=== PATIENT | female | born 1935 | race Caucasian/White ===

== ENCOUNTER 2018-07-01 09:10 | Emergency (ER) | payer MEDICARE, BC ==
[~2018-07-01] VITALS: Ht 152.4 cm; Wt 86.2 kg
[~2018-07-01 09:10] MED LIST: ASPI-630 PO; CEFD300C PO; GABA-585 PO; LEXAPRO10 MG PO; LISI10TA2 PO; OMEP40CA5 PO; POTA10TA12 PO; RAMI2.5C2 PO; SOLI10TA2 PO; TOLT2CAP PO; dilTIAZem HCL PO
[2018-07-01 09:30] VITALS: BP 114/73
[2018-07-01 09:48] LABS: BASO % 1 % (0-3); EOS # 0.1 x10^3/uL (0.0-0.7); EOS % 2 % (0-3); HEMATOCRIT 34.6 % (36.0-47.0); HEMOGLOBIN 11.8 g/dL (12.0-15.5); LYMPH % 12 % (24-48); MEAN CORPUSCULAR HEMOGLOBIN 30 pg (25-35); MEAN CORPUSCULAR HGB CONC 34 g/dL (31-37); MEAN CORPUSCULAR VOLUME 87 fL (79-100); MONO # 0.6 x10^3/uL (0.0-1.1); MONO % 7 % (0-9); NEUT # 6.6 x10^3uL (1.8-7.7); NEUT % 79 % (31-73); PLATELET COUNT 247 x10^3/uL (140-400); RED BLOOD COUNT 3.96 x10^6/uL (3.50-5.40); RED CELL DISTRIBUTION WIDTH 16.3 % (11.5-14.5); WHITE BLOOD COUNT 8.4 x10^3/uL (4.0-11.0)
[2018-07-01 10:09] LABS: CALCIUM 8.7 mg/dL (8.5-10.1); GFR 53.1; POTASSIUM 3.9 mmol/L (3.5-5.1)
[2018-07-01 10:15] LABS: ALBUMIN 2.4 g/dL (3.4-5.0); ALBUMIN/GLOBULIN RATIO 0.6 (1.0-1.7); TOTAL BILIRUBIN 0.9 mg/dL (0.2-1.0); TOTAL PROTEIN 6.6 g/dL (6.4-8.2)
[2018-07-01 10:26] LABS: PROTHROMBIN TIME PATIENT 13.4 SEC (11.7-14.0)
--- NOTE | 2018-07-01 11:28 | PHYS DOC ---
Past Medical History Past Medical History: A-Fib, Anxiety, Depression, GERD, Hypertension, Other Additional Past Medical Histor: OVARIAN CANCER, CHEMO,URINARY RETENTION, ALTERED MENTAL STATUS Past Surgical History: Cholecystectomy, Hysterectomy, Other Additional Past Surgical Histo: HERNIA, CHEMO FOR OVARIAN CANCER Alcohol Use: None Drug Use: None Adult General Chief Complaint Chief Complaint: RECTAL BLEED HPI HPI Patient is a 83 year old female skilled nursing patient who presents with single episode of bright red rectal bleeding with bowel movement prior to ED arrival. Patient denies abdominal pain. No lightheadedness, dizziness reported. Patient is on DVT prophylaxis doses of lovenox. [] Review of Systems Review of Systems Review symptoms as per history of present illness. All other systems were reviewed and found to be within normal limits, except as documented in this note. Current Medications Current Medications Current Medications Medications (Trade) Dose Ordered Sig/Constantin Start Time Stop Time Status Last Admin Dose Admin Fentanyl Citrate (Fentanyl 2ml Vial) 25 mcg 1X ONCE 07/01/18 11:45 07/01/18 11:46 DC 07/01/18 12:22 25 MCG Info (CONTRAST GIVEN -- Rx MONITORING) 1 each PRN DAILY PRN 07/01/18 12:30 07/03/18 12:29 Iohexol (Omnipaque 300 Mg/ml) 60 ml 1X ONCE 07/01/18 12:15 07/01/18 12:17 DC 07/01/18 12:15 60 ML Ondansetron HCl (Zofran) 4 mg 1X ONCE 07/01/18 11:45 07/01/18 11:46 DC 07/01/18 12:21 4 MG Allergies Allergies Allergies Coded Allergies Type Severity Reaction Last Updated Verified No Known Drug Allergies 06/14/18 No Physical Exam Physical Exam Constitutional: Well developed, well nourished, early weak and fatigued appearing.. [] HENT: Normocephalic, atraumatic, bilateral external ears normal, oropharynx moist, nose normal. [] Eyes: PERRLA,conjunctiva normal. [] Neck: Normal range of motion. [] Cardiovascular: Regular rate and rhythm.[] Lungs & Thorax: Respirations nonlabored, breath sounds clear.[] Abdomen: Bowel sounds normal, soft, oozing to left lower abdominal region consistent with Lovenox injections.. [] Skin: Warm, dry, no erythema, no rash. [] Back: No tenderness, no CVA tenderness. [] Extremities: No tenderness, no cyanosis, no clubbing, ROM intact, no edema. [] Neurologic: Alert and oriented X 3, normal motor function, normal sensory function, no focal deficits noted. [] Psychologic: Affect normal, judgement normal, mood normal. [] Current Patient Data Vital Signs Vital Signs Date Time Temp Pulse Resp B/P (MAP) Pulse Ox O2 Delivery O2 Flow Rate FiO2 07/01/18 12:22 18 97 Nasal Cannula 2.0 07/01/18 09:30 98.8 110 114/73 (87) 98.8 Lab Values Laboratory Tests Test 07/01/18 09:30 07/01/18 12:22 White Blood Count 8.4 x10^3/uL (4.0-11.0) Red Blood Count 3.96 x10^6/uL (3.50-5.40) Hemoglobin 11.8 g/dL (12.0-15.5) L Hematocrit 34.6 % (36.0-47.0) L Mean Corpuscular Volume 87 fL (79-100) Mean Corpuscular Hemoglobin 30 pg (25-35) Mean Corpuscular Hemoglobin Concent 34 g/dL (31-37) Red Cell Distribution Width 16.3 % (11.5-14.5) H Platelet Count 247 x10^3/uL (140-400) Neutrophils (%) (Auto) 79 % (31-73) H Lymphocytes (%) (Auto) 12 % (24-48) L Monocytes (%) (Auto) 7 % (0-9) Eosinophils (%) (Auto) 2 % (0-3) Basophils (%) (Auto) 1 % (0-3) Neutrophils # (Auto) 6.6 x10^3uL (1.8-7.7) Lymphocytes # (Auto) 1.0 x10^3/uL (1.0-4.8) Monocytes # (Auto) 0.6 x10^3/uL (0.0-1.1) Eosinophils # (Auto) 0.1 x10^3/uL (0.0-0.7) Basophils # (Auto) 0.0 x10^3/uL (0.0-0.2) Prothrombin Time 13.4 SEC (11.7-14.0) Prothrombin Time INR 1.1 (0.8-1.1) Sodium Level 133 mmol/L (136-145) L Potassium Level 3.9 mmol/L (3.5-5.1) Chloride Level 99 mmol/L (98-107) Carbon Dioxide Level 24 mmol/L (21-32) Anion Gap 10 (6-14) Blood Urea Nitrogen 14 mg/dL (7-20) Creatinine 1.0 mg/dL (0.6-1.0) Estimated GFR (Cockcroft-Gault) 53.1 BUN/Creatinine Ratio 14 (6-20) Glucose Level 86 mg/dL (70-99) Calcium Level 8.7 mg/dL (8.5-10.1) Total Bilirubin 0.9 mg/dL (0.2-1.0) Aspartate Amino Transferase (AST) 21 U/L (15-37) Alanine Aminotransferase (ALT) 17 U/L (14-59) Alkaline Phosphatase 100 U/L (46-116) Total Protein 6.6 g/dL (6.4-8.2) Albumin 2.4 g/dL (3.4-5.0) L Albumin/Globulin Ratio 0.6 (1.0-1.7) L Stool Occult Blood Negative (NEG) Laboratory Tests 07/01/18 09:30 Laboratory Tests 07/01/18 09:30 EKG EKG [] Radiology/Procedures Radiology/Procedures [CT abd/pelvis: No obvious acute findings per radiology report] Course & Med Decision Making Course & Med Decision Making Pertinent Labs and Imaging studies reviewed. (See chart for details) [No evidence of acute bleed in the ED. Symptoms resolved with treatment. Lab, CT abdomen pelvis nondiagnostic. Recommend watchful waiting with skilled nursing follow-up.] Dragon Disclaimer Dragon Disclaimer This electronic medical record was generated, in whole or in part, using a voice recognition dictation system. Departure Departure Impression: Primary Impression: Abdominal pain Additional Impression: Bright red rectal bleeding Disposition: 01 HOME, SELF-CARE Condition: GOOD Referrals: JT HUDSON (PCP) Patient Instructions: Abdominal Pain (Nonspecific), Bloody Stools, Dnap-hi-Hacs Additional Instructions: [place] [facility]s evaluated emergency department for abdominal pain and bloody stools. Lab work and imaging studies were performed and are nondiagnostic. The cause of your symptoms has not been determined. Please continue home medications and follow-up with PCP in the next 2-3 days for reevaluation. Return to the ED if new or worsening symptoms. Problem Qualifiers LOLIS PRICE DO Jul 01, 2018 11:28
[2018-07-01] MEDS ORDERED: ONDANSETRON PF 4 MG/2 ML VIAL. IV ONE (11:45)
[2018-07-01] MEDS ORDERED: fentaNYL PF VIAL 100 MCG/2 ML VIAL IV ONE (11:45)
[2018-07-01] MEDS ORDERED: IOHEXOL 300 MG/ML 100ML VIAL. IV ONE (12:15)
[2018-07-01] MEDS ORDERED: CONTRAST GIVEN. MC PRN (12:30)
[2018-07-01 12:58] LABS: FECAL OB PT NEGATIVE (NEG)
--- NOTE | 2018-07-01 13:15 | RAD ---
CT ABD PELV W/ IV CONTRST ONLY Indication: ABD PAIN, RECTAL BLEED, OMNI 300 60ML REDUCED DOSE, NO PRIORS Exposure: One or more of the following individualized dose reduction techniques were utilized for this examination: 1. Automated exposure control 2. Adjustment of the mA and/or kV according to patient size 3. Use of iterative reconstruction technique. Comparison: None are available. Contrast: Intravenous contrast was given. No oral contrast per request. FINDINGS: Lower thorax: Mild atelectasis or fibrosis in the lung bases. There is some artifact obscuring the upper abdomen due to the patient's arms. Liver: Liver is also degraded by extensive metal artifact due to presumed surgical clips in the gallbladder fossa. No definite abnormality. Spleen: Not enlarged Pancreas: Unremarkable Adrenals: No evidence of mass. Kidneys: Small hypodense lesions identified at both kidneys, some of which measure fluid density. One of the lesions at the upper pole the left kidney measures greater than simple fluid density, could represent a hemorrhagic cyst. Other lesions are too small to characterize. Urinary tracts: No hydronephrosis. Gallbladder: Appears to be absent surgically Lymph nodes: No significant enlargement Vessels: Aorta is nonaneurysmal. GI tract: Mild stool identified within the colon. No bowel obstruction. No evidence of acute colitis. Appendix is not clearly visualized. Reproductive organs:No evidence of mass. Urinary bladder: Collapsed around a Gambino catheter Peritoneum: No evidence of pneumoperitoneum. No free fluid. Abdominal wall:Unremarkable Spine: Degenerative spondylosis Bones: No destructive process identified. External Soft Tissue: No acute findings. IMPRESSION: 1. No evidence of acute abnormality. 2. Renal lesions, most of which are likely cysts. At least one of these measures greater than fluid density, could be a hemorrhagic cyst, but recommend nonemergent renal ultrasound. Electronically signed by: Peyman Vela MD (07/01/2018 1:10 PM) [facility]
== END 2018-07-01 17:19 | disposition home or self-care (01) ==
LOC: ER 09:10
DX: K62.5 Hemorrhage of anus and rectum (principal); K21.9 Gastro-esophageal reflux disease without esophagitis; I10 Essential (primary) hypertension; I48.91 Unspecified atrial fibrillation; Z90.49 Acquired absence of other specified parts of digestive tract; Z90.710 Acquired absence of both cervix and uterus; Z98.890 Other specified postprocedural states; Z85.43 Personal history of malignant neoplasm of ovary
CPT/HCPCS: 36415; 74177; 80053; 82274; 85025; 85610; 96374; 96375; 99284; J2405; J3010; Q9967